=== PATIENT | female | born 1995 | race African-American/Black ===

== ENCOUNTER 2018-12-13 14:02 | Emergency (ER) | payer MEDICAID ==
[~2018-12-13] VITALS: Ht 160 cm; Wt 99.0 kg
[2018-12-13] MEDS ORDERED: SODIUM CHLORIDE 0.9% 1,000 ML IV ONE (16:45)
[2018-12-13] MEDS ORDERED: FAMOTIDINE 20MG/2ML VIAL IV STA (16:45)
[2018-12-13 17:17] LABS: CHLORIDE 109 mEq/L (98-107)
[2018-12-13 17:18] LABS: BASOPHILS % 0.8 % (0.0-2.0); EOSINOPHILS % 0.2 % (0.0-5.0); HEMATOCRIT. 39.9 % (36.0-48.0); HEMOGLOBIN. 13.7 g/dL (12.0-16.0); LYMPHOCYTES % 29.4 % (20.0-50.0); MEAN CORPUSCULAR HEMOGLOBIN 31.6 pg (28.0-32.0); MEAN CORPUSCULAR VOLUME 91.9 fL (81.0-99.0); MONOCYTES % 6.9 % (2.0-8.0); NEUTROPHILS % 62.7 % (40.0-76.0); PLATELET 253 x1000/uL (130-400); RED BLOOD CELL COUNT 4.35 mill/uL (4.2-5.4); RED CELL DISTRIBUTION WIDTH 13.6 % (11.6-14.6)
[2018-12-13 17:23] LABS: CLARITY URINE CLEAR (CLEAR); COLOR URINE YELLOW (YELLOW); KETONES URINE NEGATIVE (NEGATIVE); LEUKOCYTE ESTERASE URINE 1+ (NEGATIVE); NITRITE URINE NEGATIVE (NEGATIVE); OCCULT BLOOD URINE NEGATIVE (NEGATIVE); PH URINE 7.5 (4.5-8.0); PROTEIN URINE NEGATIVE (NEGATIVE); SPECIFIC GRAVITY URINE 1.013 (1.005-1.030)
[2018-12-13 17:27] LABS: PROTHROMBIN TIME 10.7 sec (9.6-11.0)
[2018-12-13 17:34] LABS: HCG SCREEN NEGATIVE
[2018-12-13] MEDS ORDERED: VISCOUS LIDOCAINE 2% 15 ML UDC MM STA (17:38)
[2018-12-13] MEDS ORDERED: MAGNESIUM/ALUMINUM HYDROXIDE/SIMETHICONE 30ML UDC PO ONE (17:45)
[2018-12-13 18:36] VITALS: BP 145/72
== END 2018-12-13 18:36 | disposition home or self-care (01) ==
LOC: ER 14:02
DX: R07.89 Other chest pain (principal); J02.9 Acute pharyngitis, unspecified
CPT/HCPCS: 36415; 71045; 80053; 81003; 81025; 83690; 84484; 84703; 85025; 85610; 93005; 96374; 99284; J3490; J7030

== ENCOUNTER 2020-10-28 18:48 | Emergency (ER) | payer MEDICAID ==
[~2020-10-28] VITALS: Ht 157.5 cm; Wt 75.0 kg
[2020-10-28 19:03] VITALS: BP 105/44
== END 2020-10-28 22:33 | disposition left against medical advice (07) ==
LOC: ER 18:48
DX: Z53.21 Procedure and treatment not carried out due to patient leaving prior to being seen by health care provider (principal)

== ENCOUNTER 2025-02-05 04:05 | Emergency (ER) | payer SELFPAY ==
[~2025-02-05] VITALS: Ht 160 cm; Wt 83.1 kg
[2025-02-05 04:12] VITALS: O2SAT 99
[2025-02-05 04:46] LABS: BASOPHILS % 0.8 % (0.0-2.0); EOSINOPHILS % 2.1 % (0.0-5.0); HEMATOCRIT. 39.1 % (36.0-48.0); HEMOGLOBIN. 13.2 g/dL (12.0-16.0); LYMPHOCYTES % 26.8 % (20.0-50.0); MEAN PLATELET VOLUME 7.7 fl (7.4-10.4); MONOCYTES % 7.4 % (2.0-8.0); NEUTROPHILS % 62.9 % (40.0-76.0); PLATELET 234 x1000/uL (130-400); RED BLOOD CELL COUNT 4.08 mill/uL (4.2-5.4); RED CELL DISTRIBUTION WIDTH 13.3 % (11.6-14.6)
[2025-02-05 04:59] LABS: CREATININE 0.7 mg/dL (0.6-1.0); UREA NITROGEN BLOOD 8 mg/dL (9-23)
[2025-02-05 05:01] LABS: ASPARTATE AMINOTRANSFERASE 11 IU/L (<34); BILIRUBIN DIRECT 0.3 mg/dL (<=3.0); BILIRUBIN TOTAL 1.0 mg/dL (0.1-1.0); HCG SCREEN NEGATIVE; PROTEIN TOTAL 7.0 g/dL (6.0-8.3)
[2025-02-05 05:18] LABS: CLARITY URINE CLOUDY (CLEAR); COLOR URINE YELLOW (YELLOW); GLUCOSE URINE NEGATIVE (NEGATIVE); KETONES URINE TRACE (NEGATIVE); LEUKOCYTE ESTERASE URINE TRACE (NEGATIVE); NITRITE URINE NEGATIVE (NEGATIVE); OCCULT BLOOD URINE NEGATIVE (NEGATIVE); PH URINE 5.5 (4.5-8.0); PROTEIN URINE NEGATIVE (NEGATIVE); SPECIFIC GRAVITY URINE 1.012 (1.005-1.030); UROBILINOGEN URINE 0.2 E.U./dL (0.2-1.0)
[2025-02-05] MEDS ORDERED: IBUP-1455 MT (06:08)
[2025-02-05 06:47] LABS: BACTERIA URINE 2+; RBC URINE NONE SEEN /hpf (0-2); SQUAMOUS EPITHELIAL CELL URINE 3+ /lpf (RARE/1+)
[2025-02-05] MEDS: IBUPROFEN 800MG TABLET PO ONE (07:49)
[2025-02-05 07:50] VITALS: BP 145/62; PULSE 81; RESP 18; TEMP 36.8; O2SAT 100
== END 2025-02-05 07:51 | disposition home or self-care (01) ==
LOC: ER 04:05
DX: R10.32 Left lower quadrant pain (principal); R11.10 Vomiting, unspecified; R19.7 Diarrhea, unspecified
CPT/HCPCS: 36415; 74176; 76830; 76856; 80048; 80076; 81003; 84703; 85025; 99284